=== PATIENT | female | born 1930 | race Hispanic/Latino ===

== ENCOUNTER 2017-08-04 21:25 | Inpatient (IN) | payer MEDICARE ==
[~2017-08-04] VITALS: Ht 157.5 cm; Wt 63.5 kg
[~2017-08-04 21:25] MED LIST: ASPI-1197 PO; LEVE250T PO; NAPR-1023 PO; PHENY100 PO; RALO60TA13 PO
[2017-08-04] MEDS ORDERED: HYDROCODONE/ACETAMINOPHEN 10/325 MG TAB ONE (22:17)
[2017-08-04] MEDS ORDERED: MORPHINE SULFATE 4 MG/1ML SYG ONE (23:59)
[2017-08-05 00:50] LABS: BASOPHILS % (AUTO) 0.3 % (0.0-5.0); EOSINOPHILS % (AUTO) 0.1 % (0.0-8.0); LYMPHOCYTES % (AUTO) 10.6 % (21.0-51.0); MEAN CORPUSCULAR HEMOGLOBIN 32.5 pg (27.0-33.0); MEAN CORPUSCULAR HGB CONC 35.1 g/dL (32.0-36.0); MEAN CORPUSCULAR VOLUME 92.4 fL (79-99); MONOCYTES % (AUTO) 7.1 % (3.0-13.0); NEUTROPHILS % (AUTO) 81.9 % (40.0-77.0); PLATELET COUNT (AUTO) 173 K/uL (130-400); RED BLOOD CELL COUNT(AUTO) 3.57 MIL/uL (4.00-5.50); RED CELL DISTRIBUTION WIDTH 13.3 % (11.0-15.5); WHITE BLOOD COUNT (AUTO) 12.2 K/uL (4.8-10.8)
[2017-08-05 01:14] LABS: CREATININE 0.6 mg/dL (0.5-1.5); POTASSIUM 4.4 mmol/L (3.5-5.1)
[2017-08-05 01:19] LABS: ALBUMIN 2.7 g/dL (3.5-5.0); BILIRUBIN,TOTAL 0.3 mg/dL (0.2-1.0)
[2017-08-05 01:36] LABS: INR 1.2 (0.85-1.15); PARTIAL THROMBOPLASTIN TIME 23.5 SEC (26.3-35.5); PROTHROMBIN TIME 12.6 SEC (9.6-11.6)
[2017-08-05] MEDS ORDERED: POTASSIUM CHLORIDE 20MEQ/100ML 100 ML IV PRN (03:00)
[2017-08-05] MEDS ORDERED: ACETAMINOPHEN 325 MG TAB PO PRN (03:00)
[2017-08-05] MEDS ORDERED: LIDOCAINE HCL-MPF 1% 2ML VIAL IJ PRN (03:00)
[2017-08-05] MEDS ORDERED: LACTULOSE 20 GM/30 ML UDCUP PO PRN (03:00)
[2017-08-05] MEDS ORDERED: MORPHINE SULFATE 2 MG/ML 1ML SYG IVP PRN (03:00)
[2017-08-05] MEDS ORDERED: NITROGLYCERIN 0.4 MG SL TAB SL PRN (03:00)
[2017-08-05] MEDS ORDERED: CLONIDINE HCL 0.1 MG TABLET PO PRN (03:00)
[2017-08-05] MEDS ORDERED: POTASSIUM CHLORIDE 20 MEQ ERTAB PO PRN (03:00)
[2017-08-05 03:55] VITALS: BP 114/64
[2017-08-05] MEDS ORDERED: FURO20TA4 PO (04:06)
[2017-08-05] MEDS: SODIUM CHLORIDE 0.9% 1000ML 1,000 ML IV SCH ×2 (05:02→18:41)
[2017-08-05] MEDS ORDERED: MORPHINE SULFATE 4 MG/1ML SYG ONE (05:58)
[2017-08-05 07:42] LABS: HEMATOCRIT 29.7 % (36-48); MEAN CORPUSCULAR HEMOGLOBIN 31.6 pg (27.0-33.0); MEAN CORPUSCULAR HGB CONC 34.4 g/dL (32.0-36.0); PLATELET COUNT (AUTO) 194 K/uL (130-400); RED BLOOD CELL COUNT(AUTO) 3.23 MIL/uL (4.00-5.50); RED CELL DISTRIBUTION WIDTH 13.4 % (11.0-15.5); WHITE BLOOD COUNT (AUTO) 11.4 K/uL (4.8-10.8)
[2017-08-05 08:00] LABS: INR 1.14 (0.85-1.15); PROTHROMBIN TIME 11.9 SEC (9.6-11.6)
[2017-08-05 08:02] LABS: CREATININE 0.6 mg/dL (0.5-1.5); PHENYTOIN (DILANTIN) 9.4 mcg/mL (10.0-20.0); POTASSIUM 4.3 mmol/L (3.5-5.1)
[2017-08-05 08:27] VITALS: BP 107/66
[2017-08-05] MEDS: FAMOTIDINE 20MG TAB 20 MG TAB PO SCH ×2 (08:33→21:39)
[2017-08-05] MEDS ORDERED: CALCIUM GLUCONATE 1 GM in SODIUM CHLORIDE 0.9% 50 ML IV SCH (08:45)
[2017-08-05] MEDS ORDERED: ENOXAPARIN SODIUM 40 MG/0.4 ML SYRINGE SQ SCH (08:45)
[2017-08-05] MEDS ORDERED: ONDANSETRON HCL MDV 20ML 2 MG/ML VIAL IVP PRN (09:00)
[2017-08-05 11:27] VITALS: BP 133/67
[2017-08-05] MEDS: PHENYTOIN SODIUM 100 MG ERCAP PO SCH ×2 (13:27→21:38)
[2017-08-05 16:28] VITALS: BP 119/72
[2017-08-05] MEDS: ACETAMINOPHEN 325 MG TAB PO PRN ×2 (18:41→23:39)
[2017-08-05 19:18] VITALS: BP 140/66
[2017-08-05] MEDS ORDERED: LEVETIRACETAM 250 MG TABLET PO SCH (21:00)
[2017-08-05] MEDS: LEVETIRACETAM 250 MG TABLET PO SCH ×2 (21:00→21:38)
[2017-08-05] MEDS: NAPROXEN 500 MG TABLET PO SCH (21:38)
[2017-08-05 23:40] VITALS: BP 131/54
[2017-08-06] VITALS (22 sets, daily range): BP systolic 98–170; BP diastolic 39–98
[2017-08-06] MEDS: SODIUM CHLORIDE 0.9% 1000ML 1,000 ML IV SCH ×3 (05:40→21:25)
[2017-08-06 05:46] LABS: HEMATOCRIT 20.4 % (36-48)
[2017-08-06] MEDS: CEFAZOLIN SODIUM 1 GM VIAL IVP SCH ×2 (07:00→11:50)
[2017-08-06] MEDS ORDERED: SODIUM CHLORIDE 0.9% 250 ML IV ONE (07:34)
[2017-08-06] MEDS: NAPROXEN 500 MG TABLET PO SCH ×2 (09:00→21:20)
[2017-08-06] MEDS: PHENYTOIN SODIUM 100 MG ERCAP PO SCH ×3 (09:00→21:20)
[2017-08-06] MEDS: FAMOTIDINE 20MG TAB 20 MG TAB PO SCH ×3 (09:00→21:20)
[2017-08-06] MEDS: RALOXIFENE HCL 60 MG TABLET PO SCH (09:00)
[2017-08-06] MEDS: LEVETIRACETAM 250 MG TABLET PO SCH ×2 (09:00→21:20)
[2017-08-06] MEDS ORDERED: LACTATED RINGERS 1000ML 1,000 ML IV ONE (09:32)
[2017-08-06] MEDS ORDERED: PROPOFOL 10 MG/ML 20ML VIAL IV ONE (10:27)
[2017-08-06] MEDS ORDERED: CEFAZOLIN SODIUM 1 GM VIAL ONE ×2 (12:04→12:35)
[2017-08-06] MEDS ORDERED: POTASSIUM CHLORIDE 20 MEQ ERTAB PO PRN (14:45)
[2017-08-06] MEDS ORDERED: LIDOCAINE HCL-MPF 1% 2ML VIAL IVP PRN (14:45)
[2017-08-06] MEDS ORDERED: POTASSIUM CHLORIDE 20MEQ/100ML 100 ML IV PRN (14:45)
[2017-08-06] MEDS ORDERED: DIPHENHYDRAMINE HCL 25 MG CAPSULE PO PRN (14:45)
[2017-08-06] MEDS ORDERED: HYDROCODONE/ACETAMINOPHEN 5/325 MG TAB PO PRN ×2 (14:45)
[2017-08-06] MEDS ORDERED: PROMETHAZINE HCL 25 MG/ML 1ML AMPULE IM PRN (14:45)
[2017-08-06] MEDS ORDERED: POTASSIUM CHLORIDE 10% ELIXIR 20 MEQ/15 ML UDCUP PO PRN (14:45)
[2017-08-06] MEDS ORDERED: MEPERIDINE-PF 25 MG/ML SYG ONE (15:33)
[2017-08-06] MEDS ORDERED: IPRATROPIUM/ALBUTEROL SULFATE 3 ML SOLUTION IH ONE (16:09)
[2017-08-06] MEDS: CEFAZOLIN 2GM / 50 ML 50 ML IV SCH (21:30)
[2017-08-07] VITALS: BP 111/60
[2017-08-07] MEDS: CEFAZOLIN SODIUM 1 GM VIAL IVP SCH ×2 (00:29→19:25)
[2017-08-07] MEDS: SODIUM CHLORIDE 0.9% 1000ML 1,000 ML IV SCH ×4 (00:29→19:25)
[2017-08-07] MEDS: KETOROLAC TROMETHAMINE 15MG/ML IV PRN (00:32)
[2017-08-07] MEDS: CEFAZOLIN 2GM / 50 ML 50 ML IV SCH (03:50)
[2017-08-07 04:00] VITALS: BP 92/64
[2017-08-07 04:59] LABS: HEMATOCRIT 25.7 % (36-48); MEAN CORPUSCULAR HEMOGLOBIN 30.7 pg (27.0-33.0); MEAN CORPUSCULAR HGB CONC 34.4 g/dL (32.0-36.0); MEAN CORPUSCULAR VOLUME 89.2 fL (79-99); PLATELET COUNT (AUTO) 131 K/uL (130-400); RED BLOOD CELL COUNT(AUTO) 2.88 MIL/uL (4.00-5.50); RED CELL DISTRIBUTION WIDTH 14.1 % (11.0-15.5)
[2017-08-07 05:10] LABS: CREATININE 0.4 mg/dL (0.5-1.5); POTASSIUM 3.5 mmol/L (3.5-5.1)
[2017-08-07] MEDS: POTASSIUM CHLORIDE 10% ELIXIR 20 MEQ/15 ML UDCUP PO PRN ×2 (06:27→11:45)
[2017-08-07 08:10] VITALS: BP 135/88
[2017-08-07] MEDS: FAMOTIDINE 20MG TAB 20 MG TAB PO SCH ×4 (08:23→20:00)
[2017-08-07] MEDS: NAPROXEN 500 MG TABLET PO SCH ×2 (08:28→20:00)
[2017-08-07] MEDS: RALOXIFENE HCL 60 MG TABLET PO SCH (08:28)
[2017-08-07] MEDS: PHENYTOIN SODIUM 100 MG ERCAP PO SCH ×3 (08:28→20:00)
[2017-08-07] MEDS ORDERED: ENOXAPARIN SODIUM 40 MG/0.4 ML SYRINGE SQ SCH (09:00)
[2017-08-07] MEDS: LEVETIRACETAM 250 MG TABLET PO SCH ×2 (11:41→20:00)
[2017-08-07] MEDS: FERROUS FUMARATE 324 MG TABLET PO PRN (11:42)
[2017-08-07] MEDS: CALCIUM CARBONATE 500 MG TABLET PO PRN ×2 (11:43→20:00)
[2017-08-07 12:06] VITALS: BP 149/90
[2017-08-07 17:10] VITALS: BP 105/51
[2017-08-07 20:00] VITALS: BP 131/52
[2017-08-08] VITALS: BP 103/63
[2017-08-08] MEDS: KETOROLAC TROMETHAMINE 15MG/ML IV PRN ×2 (01:11→07:26)
[2017-08-08 04:00] VITALS: BP 134/76
[2017-08-08 04:56] LABS: HEMATOCRIT 21.8 % (36-48); MEAN CORPUSCULAR HEMOGLOBIN 32.4 pg (27.0-33.0); MEAN CORPUSCULAR HGB CONC 35.8 g/dL (32.0-36.0); MEAN CORPUSCULAR VOLUME 90.5 fL (79-99); NUCLEATED RED BLOOD CELLS 0.1 % (0.0-0.19); PLATELET COUNT (AUTO) 131 K/uL (130-400); RED CELL DISTRIBUTION WIDTH 14.4 % (11.0-15.5); WHITE BLOOD COUNT (AUTO) 9.8 K/uL (4.8-10.8)
[2017-08-08 05:08] LABS: CREATININE 0.4 mg/dL (0.5-1.5); POTASSIUM 3.9 mmol/L (3.5-5.1)
[2017-08-08 08:12] VITALS: BP 142/55
[2017-08-08] MEDS: FAMOTIDINE 20MG TAB 20 MG TAB PO SCH ×4 (08:13→20:20)
[2017-08-08] MEDS: NAPROXEN 500 MG TABLET PO SCH ×2 (08:13→20:20)
[2017-08-08] MEDS: FERROUS FUMARATE 324 MG TABLET PO PRN (08:13)
[2017-08-08] MEDS: RALOXIFENE HCL 60 MG TABLET PO SCH (08:13)
[2017-08-08] MEDS: PHENYTOIN SODIUM 100 MG ERCAP PO SCH ×3 (08:13→20:19)
[2017-08-08] MEDS: CALCIUM CARBONATE 500 MG TABLET PO PRN (08:14)
[2017-08-08] MEDS: ACETAMINOPHEN 325 MG TAB PO PRN (11:00)
[2017-08-08] MEDS: LEVETIRACETAM 250 MG TABLET PO SCH ×2 (11:00→20:20)
[2017-08-08] MEDS: SODIUM CHLORIDE 0.9% 1000ML 1,000 ML IV SCH ×2 (11:00→19:53)
[2017-08-08 12:00] VITALS: BP 148/62
[2017-08-08] MEDS: ENOXAPARIN SODIUM 30 MG/0.3 ML SQ SCH (14:00)
[2017-08-08] MEDS: IPRATROPIUM/ALBUTEROL SULFATE 3 ML SOLUTION IH PRN (15:47)
[2017-08-08 16:00] VITALS: BP 139/81
[2017-08-08] MEDS ORDERED: FUROSEMIDE 10 MG/ML 4ML VIAL IV SCH (17:00)
[2017-08-08 19:49] VITALS: BP 132/59
[2017-08-08] MEDS: CEFAZOLIN SODIUM 1 GM VIAL IVP SCH (19:53)
[2017-08-08] MEDS ORDERED: SODIUM CHLORIDE 0.9% 250 ML IV ONE (23:18)
[2017-08-09 00:24] VITALS: BP 115/55
[2017-08-09] MEDS: ACETAMINOPHEN 325 MG TAB PO PRN ×2 (02:36→09:59)
[2017-08-09 04:10] VITALS: BP 115/65
[2017-08-09 04:35] LABS: HEMATOCRIT 25.6 % (36-48); MEAN CORPUSCULAR HEMOGLOBIN 30.6 pg (27.0-33.0); MEAN CORPUSCULAR HGB CONC 34.3 g/dL (32.0-36.0); MEAN CORPUSCULAR VOLUME 89.1 fL (79-99); PLATELET COUNT (AUTO) 185 K/uL (130-400); RED BLOOD CELL COUNT(AUTO) 2.87 MIL/uL (4.00-5.50); RED CELL DISTRIBUTION WIDTH 14.4 % (11.0-15.5); WHITE BLOOD COUNT (AUTO) 7.5 K/uL (4.8-10.8)
[2017-08-09 04:43] LABS: CREATININE 0.4 mg/dL (0.5-1.5); POTASSIUM 4.1 mmol/L (3.5-5.1)
[2017-08-09] MEDS: IPRATROPIUM/ALBUTEROL SULFATE 3 ML SOLUTION IH PRN ×2 (06:12→11:25)
[2017-08-09 07:45] VITALS: BP 109/66
[2017-08-09] MEDS: FAMOTIDINE 20MG TAB 20 MG TAB PO SCH ×2 (09:00→09:14)
[2017-08-09] MEDS: LEVETIRACETAM 250 MG TABLET PO SCH ×2 (09:13→11:45)
[2017-08-09] MEDS: NAPROXEN 500 MG TABLET PO SCH (09:14)
[2017-08-09] MEDS: PHENYTOIN SODIUM 100 MG ERCAP PO SCH (09:14)
[2017-08-09] MEDS: RALOXIFENE HCL 60 MG TABLET PO SCH (09:16)
[2017-08-09] MEDS: ENOXAPARIN SODIUM 30 MG/0.3 ML SQ SCH (12:30)
[2017-08-09] MEDS ORDERED: BISACODYL 10 MG SUPP.RECT RC PRN (14:45)
== END 2017-08-09 14:15 | DRG 481 ==
LOC: EDH 21:25 → EDHIP 08-05 01:25 → 4AH 08-05 03:58
PROVIDERS: ADMIT Family Medicine; ATTEND Family Medicine
PROC: 30233N1 Transfusion of Nonautologous Red Blood Cells into Peripheral Vein, Percutaneous Approach (ICD-10-PCS; principal; 2017-08-06 11:10)
PROC: 0QSC06Z Reposition Left Lower Femur with Intramedullary Internal Fixation Device, Open Approach (ICD-10-PCS; 2017-08-06 11:10)
DX: S72.452A Displaced supracondylar fracture without intracondylar extension of lower end of left femur, initial encounter for closed fracture (principal); D68.69 Other thrombophilia; M48.56XA Collapsed vertebra, not elsewhere classified, lumbar region, initial encounter for fracture; D64.9 Anemia, unspecified; G40.909 Epilepsy, unspecified, not intractable, without status epilepticus; K74.60 Unspecified cirrhosis of liver; M81.0 Age-related osteoporosis without current pathological fracture; W19.XXXA Unspecified fall, initial encounter; Y93.89 Activity, other specified; Y92.89 Other specified places as the place of occurrence of the external cause; Y99.8 Other external cause status
CPT/HCPCS: 36415; 36430; 70450; 71045; 72170; 72192; 73562; 73600; 76000; 80048; 80053; 80177; 80185; 82948; 83880; 85014; 85018; 85025; 85027; 85610; 85730; 86850; 86900; 86901; 86922; 93005; 93306; 94640; 94664; 97039; A4218; J0690; J1650; J1885; J1940; J2175; J2270; J2704; J7030; J7120; P9016

== ENCOUNTER 2018-03-25 06:32 | Day surgery (SDC) | payer MEDICARE ==
[2018-03-24 10:22] VITALS: BP 148/73
[2018-03-24 14:07] VITALS: BP 151/68
[2018-03-25] VITALS (11 sets, daily range): BP systolic 124–158; BP diastolic 62–94
[~2018-03-25] VITALS: Ht 165.1 cm; Wt 119.2 kg
[~2018-03-25 06:32] MED LIST changes: -ASPI-1197 PO; +CEFAZOLIN SODIUM 1 GM VIAL IVP SCH; +FURO20TA4 PO
[2018-03-25] MEDS ORDERED: LACTATED RINGERS 1000ML 1,000 ML IV ONE (06:57)
[2018-03-25] MEDS ORDERED: LIDOCAINE HCL 1% 20 ML VIAL ONE (07:38)
[2018-03-25] MEDS ORDERED: BUPIVACAINE/PF 0.5% 10ML VIAL ONE (07:38)
== END 2018-03-25 09:35 | disposition home or self-care (01) ==
LOC: DAH 06:32
PROVIDERS: ATTEND Orthopaedic Surgery
DX: T84.84XA Pain due to internal orthopedic prosthetic devices, implants and grafts, initial encounter (principal); Y83.8 Other surgical procedures as the cause of abnormal reaction of the patient, or of later complication, without mention of misadventure at the time of the procedure; Z96.652 Presence of left artificial knee joint; Z90.49 Acquired absence of other specified parts of digestive tract; Z82.49 Family history of ischemic heart disease and other diseases of the circulatory system; Z79.899 Other long term (current) drug therapy; Z79.82 Long term (current) use of aspirin
CPT/HCPCS: 20680; 76000; A4510; J0690; J3490; J7120

== ENCOUNTER 2018-05-17 16:37 | Observation (INO) | payer MEDICARE ==
[~2018-05-17] VITALS: Ht 144.8 cm; Wt 58.4 kg
[~2018-05-17 16:37] MED LIST changes: -CEFAZOLIN SODIUM 1 GM VIAL IVP SCH
[2018-05-17] MEDS ORDERED: ACETAMINOPHEN 325 MG TAB ONE (17:08)
[2018-05-17 19:42] LABS: BASOPHILS % (AUTO) 0.3 % (0.0-5.0); EOSINOPHILS % (AUTO) 0.5 % (0.0-8.0); HEMATOCRIT 37.9 % (36-48); LYMPHOCYTES % (AUTO) 14.1 % (21.0-51.0); MEAN CORPUSCULAR HEMOGLOBIN 31.6 pg (27.0-33.0); MEAN CORPUSCULAR HGB CONC 33.1 g/dL (32.0-36.0); MEAN CORPUSCULAR VOLUME 95.2 fL (79-99); MONOCYTES % (AUTO) 6.6 % (3.0-13.0); NEUTROPHILS % (AUTO) 78.5 % (40.0-77.0); NUCLEATED RED BLOOD CELLS 0.1 % (0.0-0.19); PLATELET COUNT (AUTO) 103 K/uL (130-400); RED BLOOD CELL COUNT(AUTO) 3.98 MIL/uL (4.00-5.50); RED CELL DISTRIBUTION WIDTH 13.5 % (11.0-15.5); WHITE BLOOD COUNT (AUTO) 10.7 K/uL (4.8-10.8)
[2018-05-17] MEDS ORDERED: SODIUM CHLORIDE 0.9% 1000ML 1,000 ML IV SCH (20:06)
[2018-05-17 20:09] LABS: INR 1.18 (0.85-1.15); PROTHROMBIN TIME 12.3 SEC (9.6-11.6)
[2018-05-17 20:12] LABS: CREATININE 0.4 mg/dL (0.5-1.5); POTASSIUM 4.1 mmol/L (3.5-5.1)
[2018-05-17] MEDS ORDERED: ONDANSETRON HCL 4 MG/2 ML VIAL IV PRN (20:15)
[2018-05-17] MEDS ORDERED: TETANUS/DIPHTHERIA TOXOID [ADULT] 0.5 ML VIAL IM SCH (20:15)
[2018-05-17] MEDS ORDERED: MORPHINE SULFATE 2 MG/ML 1ML SYG IV PRN (20:15)
[2018-05-17 20:17] LABS: ALBUMIN 3.1 g/dL (3.5-5.0); BILIRUBIN,TOTAL 0.3 mg/dL (0.2-1.0)
[2018-05-17] MEDS ORDERED: LEVETIRACETAM 250 MG TABLET PO SCH (21:00)
[2018-05-17] MEDS: LEVETIRACETAM 250 MG TABLET PO SCH (21:00)
[2018-05-17] MEDS: PHENYTOIN SODIUM 100 MG ERCAP PO SCH (21:00)
[2018-05-17] MEDS: FAMOTIDINE/PF 20 MG/2 ML VIAL IV SCH (21:00)
[2018-05-17] MEDS: ENOXAPARIN SODIUM 30 MG/0.3 ML SQ SCH (21:00)
[2018-05-17] MEDS ORDERED: ENOXAPARIN SODIUM 30 MG/0.3 ML SQ ONE (21:10)
[2018-05-17] MEDS ORDERED: FAMOTIDINE/PF 20 MG/2 ML VIAL IV ONE (21:10)
[2018-05-17] MEDS ORDERED: SODIUM CHLORIDE 0.9% 1000ML 1,000 ML IV ONE (21:10)
[2018-05-17 21:45] VITALS: BP 141/85
[2018-05-17 23:00] VITALS: BP 134/73
[2018-05-18 03:00] VITALS: BP_SYST 105; BP_SYST 138; BP_SYST 158; BP_DIAS 61; BP_DIAS 80; BP_DIAS 93
[2018-05-18] MEDS ORDERED: ACETAMINOPHEN-CODEINE 300/30MG TAB PO PRN (07:45)
[2018-05-18 07:54] VITALS: BP 143/76
[2018-05-18] MEDS ORDERED: RALOXIFENE HCL 60 MG TABLET PO SCH (09:00)
[2018-05-18] MEDS: LEVETIRACETAM 250 MG TABLET PO SCH (09:12)
[2018-05-18] MEDS: PHENYTOIN SODIUM 100 MG ERCAP PO SCH (09:12)
[2018-05-18] MEDS: FAMOTIDINE/PF 20 MG/2 ML VIAL IV SCH (09:19)
[2018-05-18] MEDS: ENOXAPARIN SODIUM 30 MG/0.3 ML SQ SCH (09:21)
[2018-05-18 11:17] VITALS: BP 145/73
[2018-05-20] MEDS ORDERED: FUROSEMIDE 20 MG TABLET PO SCH (09:00)
== END 2018-05-18 13:00 | disposition home or self-care (01) ==
LOC: EDH 16:37 → EDHIP 19:35 → 4AH 21:53
PROVIDERS: ADMIT Hospitalist; ATTEND Hospitalist
DX: S72.401A Unspecified fracture of lower end of right femur, initial encounter for closed fracture (principal); G40.909 Epilepsy, unspecified, not intractable, without status epilepticus; M81.0 Age-related osteoporosis without current pathological fracture; Z96.659 Presence of unspecified artificial knee joint; W18.30XA Fall on same level, unspecified, initial encounter; Y92.009 Unspecified place in unspecified non-institutional (private) residence as the place of occurrence of the external cause; Y93.89 Activity, other specified; Y99.8 Other external cause status
CPT/HCPCS: 36415; 71045; 73521; 73552; 73562; 73700; 80053; 80177; 80185; 84484; 85025; 85610; 85730; 93005 ×2; 96372; 96374; 97116; 97161; 99284; G0378 ×17; G8978; G8979; G8980; G8981; G8982; G8983; J1650 ×2; J3490 ×2; J7030; 90714

== ENCOUNTER 2018-07-12 14:16 | Emergency (ER) | payer MEDICARE ==
[~2018-07-12 14:16] MED LIST changes: +ASPI-1005 PO; +METO25 PO; -RALO60TA13 PO
[2018-07-12] MEDS ORDERED: TETANUS/DIPHTHERIA TOXOID [ADULT] 0.5 ML VIAL IM ONE (14:53)
== END 2018-07-12 17:23 | disposition home or self-care (01) ==
LOC: EDH 14:16
DX: S00.83XA Contusion of other part of head, initial encounter (principal); S40.012A Contusion of left shoulder, initial encounter; M81.0 Age-related osteoporosis without current pathological fracture; Z90.49 Acquired absence of other specified parts of digestive tract; Z96.641 Presence of right artificial hip joint; W18.39XA Other fall on same level, initial encounter; Y93.89 Activity, other specified; Y92.89 Other specified places as the place of occurrence of the external cause; Y99.8 Other external cause status
CPT/HCPCS: 70450; 73502; 90471; 90714